=== PATIENT | male | born 1950 | race Caucasian/White ===

== ENCOUNTER 2017-06-23 15:54 | Inpatient (IN) ==
[2017-06-23 17:06] LABS: Basophils % 0.4 % (0.0-0.8); Eosinophils # 0.2 10*3/uL (0.0-0.87); Eosinophils % 1.9 % (0.00-10.9); Hematocrit 40.3 VOL% (42.0-52.0); Hemoglobin 13.5 GM/DL (14.0-18.0); Immature Granulocytes % 1.7 %; Immature Granulocytes Absolute 0.15 #; Lymphocytes # 1.2 10*3/uL (1.4-4.0); Lymphocytes % 13.3 % (21.2-54.2); Mean Corpuscular HGB Conc 33.5 GM/DL (32-36); Mean Corpuscular Hemoglobin 28 PG (27-34); Mean Corpuscular Volume 84.1 FL (87-102); Mean Platelet Volume 10.4 FL (9.6-12.0); Monocytes # 0.7 10*3/uL (0.11-0.8); Monocytes % 8.3 % (1.7-12.7); Neutrophils # 6.6 10*3/uL (1.4-7.4); Neutrophils % 74.4 % (38.7-73.9); Platelet Count 336 T/CUMM (130-400); Red Blood Count 4.79 MC/CUMM (3.8-5.5); Red Cell Distribution Width 12.9 % (9.3-17.3); White Blood Count 8.9 T/CUMM (4-12)
[2017-06-23 17:07] LABS: Apearance,Urine CLEAR (Clear); Bilirubin,Urine Negative (Negative); Blood, Urine Negative (Negative); Glucose,Urine (UA) >=500 mg/dL (Negative); Ketones,Urine Negative (Negative); Nitrite,Urine Negative (Negative); Protein,Urine Negative; RBC,Urine <1 /HPF (0-4); Urine Color Yellow (Yellow); Urine Urobilinogen < 2.0 EU/DL (0.2-1.0); WBC,Urine <1 /HPF (0-6)
[2017-06-23 17:28] LABS: Alanine Aminotransferase 24 U/L (16-61); Albumin 3.6 G/DL (3.4-5.0); Alkaline Phosphatase 170 U/L (45-117); Aspartate Amino Transferase 14 U/L (0-37); Bilirubin,Total < 0.39 MG/DL (0.2-1.0); Blood Urea Nitrogen 24 MG/DL (7-18); Calcium 10.6 MG/DL (8.5-10.1); Glucose 252 MG/DL (74-106); Osmolality,Calculated 285.8 MOS/KG (273-304); Potassium 4.1 MMOL/L (3.5-5.1); Sodium 137 MMOL/L (136-145); Total Protein 6.9 G/DL (6.4-8.3); Troponin I Only < 0.015 NG/ML (0.00-0.045)
[2017-06-23] MEDS ORDERED: GLUCAGON 1 MG VIAL IM PRN (22:41)
[2017-06-23] MEDS ORDERED: DEXTROSE 50% 25 GM/50 ML VIAL IV PRN (22:41)
[2017-06-23] MEDS ORDERED: ONDANSETRON 4 MG/2 ML VIAL IV PRN (22:41)
[2017-06-23] MEDS: MORPHINE 2 MG/1 ML SYRINGE IV PRN (23:05)
[2017-06-23] MEDS: ENOXAPARIN 40 MG/0.4 ML SYRINGE SUBCUT SCH (23:06)
[2017-06-23] MEDS: INSULIN LISPRO 100 UNIT/ML SUBCUT SCH (23:06)
[2017-06-23] MEDS: SODIUM CHLORIDE 0.9% 1,000 ML IV SCH (23:51)
[2017-06-24 02:35] LABS: Basophils % 0.3 % (0.0-0.8); Eosinophils % 0.3 % (0.00-10.9); Hematocrit 38.1 VOL% (42.0-52.0); Hemoglobin 12.5 GM/DL (14.0-18.0); Immature Granulocytes % 0.6 %; Immature Granulocytes Absolute 0.07 #; Lymphocytes # 0.9 10*3/uL (1.4-4.0); Mean Corpuscular HGB Conc 32.8 GM/DL (32-36); Mean Corpuscular Hemoglobin 28 PG (27-34); Mean Corpuscular Volume 85.6 FL (87-102); Monocytes % 7.6 % (1.7-12.7); Neutrophils # 10.6 10*3/uL (1.4-7.4); Neutrophils % 84.2 % (38.7-73.9); Platelet Count 306 T/CUMM (130-400); Red Blood Count 4.45 MC/CUMM (3.8-5.5); Red Cell Distribution Width 12.9 % (9.3-17.3); White Blood Count 12.6 T/CUMM (4-12)
[2017-06-24 03:02] LABS: Calcium 9.7 MG/DL (8.5-10.1); Osmolality,Calculated 283.8 MOS/KG (273-304); Potassium 4.1 MMOL/L (3.5-5.1)
[2017-06-24 03:06] LABS: Risk Ratio 3.9; VLDL CHOLESTEROL 17.4 MG/DL
[2017-06-24] MEDS: MORPHINE 2 MG/1 ML SYRINGE IV PRN (04:57)
[2017-06-24] MEDS: INSULIN LISPRO 100 UNIT/ML SUBCUT SCH ×4 (08:55→21:00)
[2017-06-24] MEDS: PANTOPRAZOLE 40 MG TABLET PO SCH (08:56)
[2017-06-24] MEDS: SODIUM CHLORIDE 0.9% 1,000 ML IV SCH (16:07)
[2017-06-24] MEDS: ENOXAPARIN 40 MG/0.4 ML SYRINGE SUBCUT SCH (21:03)
[2017-06-24] MEDS: ZALEPLON 5 MG CAPSULE PO PRN (23:09)
[2017-06-25] MEDS: INSULIN LISPRO 100 UNIT/ML SUBCUT SCH ×4 (07:58→21:23)
[2017-06-25] MEDS: SODIUM CHLORIDE 0.9% 1,000 ML IV SCH (08:20)
[2017-06-25] MEDS: PANTOPRAZOLE 40 MG TABLET PO SCH (08:21)
[2017-06-26] MEDS: SODIUM CHLORIDE 0.9% 1,000 ML IV SCH ×2 (00:37→16:46)
[2017-06-26] MEDS ORDERED: SIMETHICONE CHEW 125 MG TABLET PO PRN (00:50)
[2017-06-26 05:39] LABS: Basophils % 0.3 % (0.0-0.8); Eosinophils # 0.1 10*3/uL (0.0-0.87); Eosinophils % 0.8 % (0.00-10.9); Hematocrit 38.1 VOL% (42.0-52.0); Hemoglobin 12.4 GM/DL (14.0-18.0); Immature Granulocytes % 0.6 %; Immature Granulocytes Absolute 0.08 #; Lymphocytes # 0.7 10*3/uL (1.4-4.0); Lymphocytes % 5.8 % (21.2-54.2); Mean Corpuscular HGB Conc 32.5 GM/DL (32-36); Mean Corpuscular Hemoglobin 28 PG (27-34); Mean Corpuscular Volume 87.4 FL (87-102); Monocytes % 7.4 % (1.7-12.7); Neutrophils # 10.9 10*3/uL (1.4-7.4); Neutrophils % 85.1 % (38.7-73.9); Platelet Count 295 T/CUMM (130-400); Red Blood Count 4.36 MC/CUMM (3.8-5.5); Red Cell Distribution Width 13.1 % (9.3-17.3); White Blood Count 12.8 T/CUMM (4-12)
[2017-06-26 06:14] LABS: Calcium 9.6 MG/DL (8.5-10.1); Osmolality,Calculated 276.1 MOS/KG (273-304); Potassium 4.5 MMOL/L (3.5-5.1)
[2017-06-26] MEDS: PANTOPRAZOLE 40 MG TABLET PO SCH (08:37)
[2017-06-26] MEDS: INSULIN LISPRO 100 UNIT/ML SUBCUT SCH ×4 (08:37→21:25)
[2017-06-26] MEDS: ZALEPLON 5 MG CAPSULE PO PRN (21:25)
[2017-06-27] MEDS: MORPHINE 2 MG/1 ML SYRINGE IV PRN (01:45)
[2017-06-27 05:22] LABS: Basophils % 0.4 % (0.0-0.8); Eosinophils # 0.2 10*3/uL (0.0-0.87); Eosinophils % 1.7 % (0.00-10.9); Hematocrit 38.3 VOL% (42.0-52.0); Hemoglobin 12.3 GM/DL (14.0-18.0); Immature Granulocytes % 0.9 %; Lymphocytes # 0.8 10*3/uL (1.4-4.0); Lymphocytes % 6.8 % (21.2-54.2); Mean Corpuscular HGB Conc 32.1 GM/DL (32-36); Mean Corpuscular Hemoglobin 28 PG (27-34); Mean Corpuscular Volume 87.2 FL (87-102); Mean Platelet Volume 10.5 FL (9.6-12.0); Monocytes # 0.8 10*3/uL (0.11-0.8); Monocytes % 6.8 % (1.7-12.7); Neutrophils # 9.5 10*3/uL (1.4-7.4); Neutrophils % 83.4 % (38.7-73.9); Platelet Count 318 T/CUMM (130-400); Red Blood Count 4.39 MC/CUMM (3.8-5.5); Red Cell Distribution Width 13.1 % (9.3-17.3); White Blood Count 11.4 T/CUMM (4-12)
[2017-06-27 05:29] LABS: PT Patient Result 10.7 SECS; Partial Thromboplastin Time 29.4 SECS (0-40)
[2017-06-27] MEDS ORDERED: MEPERIDINE 50 MG/1 ML VIAL IM ONE (07:30)
[2017-06-27] MEDS ORDERED: BENZONATATE 100 MG CAPSULE PO ONE (07:30)
[2017-06-27] MEDS ORDERED: diphenhydrAMINE 50 MG/1 ML VIAL IM ONE (07:30)
[2017-06-27] MEDS ORDERED: LIDOCAINE 2% VISCOUS 100 ML BOTTLE SWISH/SPIT ONE (08:00)
[2017-06-27] MEDS ORDERED: LIDOCAINE 2% 20 ML VIAL RESP TX ONE (08:00)
[2017-06-27] MEDS ORDERED: LIDOCAINE 1% 20 ML VIAL MISC INJ ONE (08:00)
[2017-06-27] MEDS ORDERED: EPINEPHrine 1 MG/ML VIAL ET ONE (09:55)
[2017-06-27] MEDS: INSULIN LISPRO 100 UNIT/ML SUBCUT SCH (10:37)
[2017-06-27] MEDS ORDERED: EPINEPHrine 1 MG/ML VIAL ONE (10:37)
[2017-06-27] MEDS: PANTOPRAZOLE 40 MG TABLET PO SCH (10:38)
[2017-06-27] MEDS: SODIUM CHLORIDE 0.9% 1,000 ML IV SCH (10:41)
[2017-06-27 16:29] VITALS: BP 158/76
== END 2017-06-27 16:17 | disposition home or self-care (01) | DRG 988 ==
LOC: N.ED 15:54 → N.EDINP 19:58 → SUATTDRO 19:58 → N.3E 21:13
PROVIDERS: ADMIT Family Medicine; ATTEND Internal Medicine
PROC: BRONCHB (2017-06-27 09:05)

== ENCOUNTER 2018-01-30 18:04 | Inpatient (IN) ==
[2018-01-30] MEDS ORDERED: methylPREDNISolone SOD SUC 125 MG/2 ML VIAL IV STA (20:21)
[2018-01-30] MEDS ORDERED: LEVOFLOXACIN INJ 500 MG in PREMIX 1 EACH IV STA (20:21)
[2018-01-30] MEDS ORDERED: DILTIAZEM 50 MG/10 ML VIAL IV STA (20:21)
[2018-01-30] MEDS ORDERED: ALBUTEROL/IPRATROPIUM 3 ML NEB RESP TX STA (20:21)
[2018-01-30] MEDS ORDERED: FUROSEMIDE 100 MG/10 ML VIAL IV STA (20:21)
[2018-01-30] MEDS ORDERED: ONDANSETRON 4 MG/2 ML VIAL IV STA (20:21)
[2018-01-30] MEDS ORDERED: DILTIAZEM 25 MG/5 ML VIAL IV STA (20:40)
[2018-01-30] MEDS: DILTIAZEM INJ 100 MG in SODIUM CHLORIDE 0.9% 100 ML IV SCH (21:45)
[2018-01-30 22:08] LABS: Basophils % 0.4 % (0.0-0.8); Eosinophils % 0.8 % (0.00-10.9); Hematocrit 38.5 VOL% (42.0-52.0); Hemoglobin 12.7 GM/DL (14.0-18.0); Immature Granulocytes % 0.8 %; Immature Granulocytes Absolute 0.04 #; Lymphocytes # 0.5 10*3/uL (1.4-4.0); Lymphocytes % 10.7 % (21.2-54.2); Mean Corpuscular Hemoglobin 30 PG (27-34); Mean Corpuscular Volume 91.9 FL (87-102); Mean Platelet Volume 9.6 FL (9.6-12.0); Monocytes # 0.5 10*3/uL (0.11-0.8); Monocytes % 9.5 % (1.7-12.7); Neutrophils # 3.7 10*3/uL (1.4-7.4); Neutrophils % 77.8 % (38.7-73.9); Platelet Count 265 T/CUMM (130-400); Red Blood Count 4.19 MC/CUMM (3.8-5.5); Red Cell Distribution Width 13.9 % (9.3-17.3); White Blood Count 4.8 T/CUMM (4-12)
[2018-01-30 22:21] LABS: INR 1.1; PT Patient Result 11.2 SECS
[2018-01-30 22:29] LABS: Albumin 3.4 G/DL (3.4-5.0); Bilirubin,Total 0.7 MG/DL (0.2-1.0); Calcium 10.3 MG/DL (8.5-10.1); Osmolality,Calculated 278.7 MOS/KG (273-304); Potassium 4.1 MMOL/L (3.5-5.1); Total Protein 7.6 G/DL (6.4-8.3)
[2018-01-30 22:30] LABS: Lactic Acid 1.4 MMOL/L (0.4-2.0)
[2018-01-30 22:33] LABS: Apearance,Urine CLEAR (Clear); Bilirubin,Urine Negative (Negative); Blood, Urine Negative (Negative); Glucose,Urine (UA) Negative (Negative); Ketones,Urine Negative (Negative); Nitrite,Urine Negative (Negative); Protein,Urine Negative; Urine Color Yellow (Yellow); Urine Specific Gravity 1.009 (1.001-1.035); Urine Urobilinogen < 2.0 EU/DL (0.2-1.0); WBC,Urine <1 /HPF (0-6)
[2018-01-30] MEDS ORDERED: METOPROLOL TARTRATE 5 MG/5 ML VIAL IV STA (23:28)
[2018-01-30] MEDS ORDERED: ENOXAPARIN 40 MG/0.4 ML SYRINGE SUBCUT STA (23:36)
[2018-01-30] MEDS ORDERED: ASPIRIN 325 MG TABLET PO STA (23:36)
[2018-01-31] MEDS ORDERED: MAGNESIUM SULF RIDER 4 GM in PREMIX 1 EACH IV PRN (01:00)
[2018-01-31] MEDS ORDERED: ZALEPLON 5 MG CAPSULE PO PRN (01:00)
[2018-01-31] MEDS ORDERED: ONDANSETRON 4 MG/2 ML VIAL IV PRN (01:00)
[2018-01-31] MEDS ORDERED: ACETAMINOPHEN 325 MG TABLET PO PRN (01:00)
[2018-01-31] MEDS ORDERED: MAGNESIUM SULF RIDER 2 GM in PREMIX 1 EACH IV PRN (01:00)
[2018-01-31] MEDS ORDERED: diphenhydrAMINE CAP 25 MG CAPSULE PO PRN (01:00)
[2018-01-31] MEDS ORDERED: LACTULOSE 20 GM/30 ML UDCUP PO PRN (01:00)
[2018-01-31] MEDS ORDERED: DILTIAZEM INJ 100 MG in SODIUM CHLORIDE 0.9% 100 ML IV SCH (01:00)
[2018-01-31] MEDS ORDERED: MORPHINE 4 MG/1 ML VIAL IV PRN (01:00)
[2018-01-31] MEDS: DILTIAZEM INJ 100 MG in SODIUM CHLORIDE 0.9% 100 ML IV SCH ×4 (03:57→21:26)
[2018-01-31 04:42] LABS: Basophils % 0.2 % (0.0-0.8); Hematocrit 39.6 VOL% (42.0-52.0); Hemoglobin 13.2 GM/DL (14.0-18.0); Immature Granulocytes % 0.7 %; Immature Granulocytes Absolute 0.03 #; Lymphocytes # 0.4 10*3/uL (1.4-4.0); Lymphocytes % 9.2 % (21.2-54.2); Mean Corpuscular HGB Conc 33.3 GM/DL (32-36); Mean Corpuscular Hemoglobin 30 PG (27-34); Mean Corpuscular Volume 91.2 FL (87-102); Mean Platelet Volume 10.5 FL (9.6-12.0); Monocytes # 0.1 10*3/uL (0.11-0.8); Monocytes % 3.2 % (1.7-12.7); Neutrophils # 3.8 10*3/uL (1.4-7.4); Neutrophils % 86.7 % (38.7-73.9); Platelet Count 275 T/CUMM (130-400); Red Blood Count 4.34 MC/CUMM (3.8-5.5); Red Cell Distribution Width 13.9 % (9.3-17.3); White Blood Count 4.4 T/CUMM (4-12)
[2018-01-31 05:24] LABS: Albumin 3.1 G/DL (3.4-5.0); Bilirubin,Total 0.5 MG/DL (0.2-1.0); Osmolality,Calculated 281.2 MOS/KG (273-304); Potassium 4.1 MMOL/L (3.5-5.1); Risk Ratio 4.03; Thyroid Stimulating Hormone 0.556 uIU/ml (0.358-3.74); Total Protein 7.4 G/DL (6.4-8.3); VLDL CHOLESTEROL 21.4 MG/DL
[2018-01-31] MEDS ORDERED: ENOXAPARIN 40 MG/0.4 ML SYRINGE SUBCUT SCH (09:00)
[2018-01-31] MEDS: APIXABAN 2.5 MG TABLET PO SCH ×2 (09:34→21:22)
[2018-01-31] MEDS: PANTOPRAZOLE 40 MG TABLET PO SCH (09:34)
[2018-01-31] MEDS: ALBUTEROL/IPRATROPIUM 3 ML NEB RESP TX PRN ×2 (13:30→20:10)
[2018-01-31] MEDS: LEVOFLOXACIN INJ 500 MG in PREMIX 1 EACH IV SCH (17:00)
[2018-02-01] MEDS: DILTIAZEM INJ 100 MG in SODIUM CHLORIDE 0.9% 100 ML IV SCH ×4 (03:59→20:51)
[2018-02-01] MEDS: APIXABAN 2.5 MG TABLET PO SCH ×2 (09:43→20:49)
[2018-02-01] MEDS: PANTOPRAZOLE 40 MG TABLET PO SCH (09:43)
[2018-02-01] MEDS: POLYETHYLENE GLYCOL POWDER 17 GM PACK PO SCH ×2 (13:26→20:49)
[2018-02-01] MEDS ORDERED: DILTIAZEM CD 180 MG CAPSULE PO SCH (14:30)
[2018-02-01] MEDS ORDERED: METOPROLOL TARTRATE 25 MG TABLET PO SCH ×2 (14:30)
[2018-02-01] MEDS ORDERED: GLUCAGON 1 MG VIAL IM PRN (14:41)
[2018-02-01] MEDS ORDERED: DEXTROSE 50% 25 GM/50 ML VIAL IV PRN (14:41)
[2018-02-01] MEDS ORDERED: SOTALOL 80 MG TABLET PO ONE (15:52)
[2018-02-01] MEDS: ASCORBIC ACID 500 MG TABLET PO SCH ×2 (15:59→20:49)
[2018-02-01] MEDS: INSULIN LISPRO 100 UNIT/ML SUBCUT SCH ×2 (16:32→20:50)
[2018-02-01] MEDS: LEVOFLOXACIN INJ 500 MG in PREMIX 1 EACH IV SCH (18:29)
[2018-02-01] MEDS: SOTALOL 80 MG TABLET PO SCH (20:50)
[2018-02-02 04:18] LABS: Basophils % 0.4 % (0.0-0.8); Eosinophils # 0.3 10*3/uL (0.0-0.87); Eosinophils % 3.3 % (0.00-10.9); Hematocrit 37.2 VOL% (42.0-52.0); Hemoglobin 11.7 GM/DL (14.0-18.0); Immature Granulocytes % 0.4 %; Immature Granulocytes Absolute 0.03 #; Lymphocytes % 11.1 % (21.2-54.2); Mean Corpuscular HGB Conc 31.5 GM/DL (32-36); Mean Corpuscular Hemoglobin 29 PG (27-34); Mean Corpuscular Volume 93.2 FL (87-102); Mean Platelet Volume 10.2 FL (9.6-12.0); Monocytes # 0.8 10*3/uL (0.11-0.8); Monocytes % 9.8 % (1.7-12.7); Neutrophils # 6.4 10*3/uL (1.4-7.4); Platelet Count 352 T/CUMM (130-400); Red Blood Count 3.99 MC/CUMM (3.8-5.5); White Blood Count 8.6 T/CUMM (4-12)
[2018-02-02 04:36] LABS: Calcium 9.9 MG/DL (8.5-10.1); Potassium 4.3 MMOL/L (3.5-5.1)
[2018-02-02] MEDS: PANTOPRAZOLE 40 MG TABLET PO SCH (09:13)
[2018-02-02] MEDS: POLYETHYLENE GLYCOL POWDER 17 GM PACK PO SCH ×2 (09:13→21:16)
[2018-02-02] MEDS: INSULIN LISPRO 100 UNIT/ML SUBCUT SCH ×4 (09:13→22:29)
[2018-02-02] MEDS: APIXABAN 2.5 MG TABLET PO SCH ×2 (09:14→21:15)
[2018-02-02] MEDS: SOTALOL 80 MG TABLET PO SCH ×2 (09:21→21:15)
[2018-02-02] MEDS: ASCORBIC ACID 500 MG TABLET PO SCH ×2 (09:25→21:16)
[2018-02-02] MEDS: SODIUM CHLORIDE 0.9% 1,000 ML IV SCH (10:56)
[2018-02-02] MEDS: DILTIAZEM INJ 100 MG in SODIUM CHLORIDE 0.9% 100 ML IV SCH ×2 (14:48→21:21)
[2018-02-02] MEDS: metFORMIN 500 MG TABLET PO SCH (16:38)
[2018-02-02] MEDS: LEVOFLOXACIN INJ 500 MG in PREMIX 1 EACH IV SCH (16:39)
[2018-02-03] MEDS: DILTIAZEM INJ 100 MG in SODIUM CHLORIDE 0.9% 100 ML IV SCH (01:58)
[2018-02-03] MEDS: SODIUM CHLORIDE 0.9% 1,000 ML IV SCH (02:05)
[2018-02-03 03:19] LABS: Basophils % 0.2 % (0.0-0.8); Eosinophils # 0.3 10*3/uL (0.0-0.87); Eosinophils % 5.4 % (0.00-10.9); Hematocrit 33.9 VOL% (42.0-52.0); Immature Granulocytes % 0.8 %; Immature Granulocytes Absolute 0.05 #; Lymphocytes % 15.3 % (21.2-54.2); Mean Corpuscular HGB Conc 32.4 GM/DL (32-36); Mean Corpuscular Hemoglobin 30 PG (27-34); Mean Corpuscular Volume 91.6 FL (87-102); Monocytes # 0.4 10*3/uL (0.11-0.8); Monocytes % 6.1 % (1.7-12.7); Neutrophils # 4.6 10*3/uL (1.4-7.4); Neutrophils % 72.2 % (38.7-73.9); Platelet Count 291 T/CUMM (130-400); Red Cell Distribution Width 13.8 % (9.3-17.3); White Blood Count 6.4 T/CUMM (4-12)
[2018-02-03 04:04] LABS: Calcium 9.8 MG/DL (8.5-10.1); Osmolality,Calculated 279.7 MOS/KG (273-304); Potassium 4.2 MMOL/L (3.5-5.1)
[2018-02-03 07:55] VITALS: BP 125/89
[2018-02-03] MEDS ORDERED: SOTALOL 80 MG TABLET PO SCH (09:00)
[2018-02-03] MEDS: ASCORBIC ACID 500 MG TABLET PO SCH (11:00)
[2018-02-03] MEDS: metFORMIN 500 MG TABLET PO SCH (11:00)
[2018-02-03] MEDS: POLYETHYLENE GLYCOL POWDER 17 GM PACK PO SCH (11:00)
[2018-02-03] MEDS: APIXABAN 2.5 MG TABLET PO SCH (11:02)
[2018-02-03] MEDS: PANTOPRAZOLE 40 MG TABLET PO SCH (11:02)
== END 2018-02-03 11:25 | disposition home or self-care (01) | DRG 308 ==
LOC: N.ED 18:04 → N.EDINP 01-31 01:00 → N.TELES 01-31 02:04
PROVIDERS: ADMIT Internal Medicine; ATTEND Internal Medicine

== ENCOUNTER 2018-11-15 21:37 | Inpatient (IN) ==
[2018-11-15] MEDS ORDERED: ONDANSETRON 4 MG/2 ML VIAL IV STA (22:01)
[2018-11-15] MEDS ORDERED: SODIUM CHLORIDE 0.9% 500 ML IV STA (22:01)
[2018-11-15] MEDS ORDERED: PANTOPRAZOLE 40 MG VIAL IV STA (22:01)
[2018-11-15] MEDS ORDERED: HYDROmorphone 2 MG/1 ML VIAL IV STA (22:01)
[2018-11-15] MEDS ORDERED: KETOROLAC 30 MG/1 ML VIAL IV STA (22:01)
[2018-11-15 22:55] LABS: Basophils % 0.3 % (0.0-0.8); Eosinophils # 0.2 10*3/uL (0.0-0.87); Eosinophils % 2.4 % (0.00-10.9); Hematocrit 42.4 VOL% (42.0-52.0); Hemoglobin 13.5 GM/DL (14.0-18.0); Immature Granulocytes % 0.6 %; Immature Granulocytes Absolute 0.06 #; Lymphocytes % 10.1 % (21.2-54.2); Mean Corpuscular HGB Conc 31.8 GM/DL (32-36); Mean Corpuscular Volume 89.3 FL (87-102); Mean Platelet Volume 10.1 FL (9.6-12.0); Monocytes % 8.6 % (1.7-12.7); Platelet Count 235 T/CUMM (130-400); Red Blood Count 4.75 MC/CUMM (3.8-5.5); Red Cell Distribution Width 13.8 % (9.3-17.3); White Blood Count 9.8 T/CUMM (4-12)
[2018-11-15 23:25] LABS: Alanine Aminotransferase 24 U/L (16-61); Albumin 3.4 G/DL (3.4-5.0); Alkaline Phosphatase 98 U/L (45-117); Amylase 44 U/L (25-115); Aspartate Amino Transferase 16 U/L (0-37); Bilirubin,Total < 0.39 MG/DL (0.2-1.0); Blood Urea Nitrogen 20 MG/DL (7-18); Calcium 10.7 MG/DL (8.5-10.1); Glucose 168 MG/DL (74-106); Osmolality,Calculated 283.5 MOS/KG (273-304); Total Protein 7.3 G/DL (6.4-8.3)
[2018-11-16 02:36] LABS: Apearance,Urine CLEAR (Clear); Bilirubin,Urine Negative (Negative); Blood, Urine Negative (Negative); Calcium Oxalate Crystals,Urine Few /HPF (Few); Glucose,Urine (UA) 50 mg/dL (Negative); Hyaline Casts,Urine 3 /LPF (0-3); Ketones,Urine Negative (Negative); Mucus,Urine Occasional /LPF (Occasional); Nitrite,Urine Negative (Negative); Protein,Urine Negative; RBC,Urine 4 /HPF (0-4); Squamous Epithelial Cell,Urine Occasional /HPF (0-10); Urine Color Yellow (Yellow); Urine Specific Gravity 1.017 (1.001-1.035); Urine Urobilinogen < 2.0 EU/DL (0.2-1.0); WBC,Urine 2 /HPF (0-6)
[2018-11-16] MEDS ORDERED: PROMETHAZINE 25 MG/1 ML VIAL IM PRN (04:26)
[2018-11-16] MEDS ORDERED: ONDANSETRON 4 MG/2 ML VIAL IV PRN (04:26)
[2018-11-16] MEDS ORDERED: MORPHINE 4 MG/1 ML VIAL IV PRN (04:26)
[2018-11-16] MEDS ORDERED: NITROGLYCERIN SL 0.4 MG TABLET SL PRN (05:02)
[2018-11-16] MEDS ORDERED: DEXTROSE 50% 25 GM/50 ML VIAL IV PRN (05:04)
[2018-11-16] MEDS ORDERED: GLUCAGON 1 MG VIAL IM PRN (05:04)
[2018-11-16] MEDS: INSULIN REGULAR 100 UNIT/ML SUBCUT SCH ×4 (06:21→23:33)
[2018-11-16] MEDS ORDERED: ENOXAPARIN 40 MG/0.4 ML SYRINGE SUBCUT SCH (09:30)
[2018-11-16] MEDS ORDERED: ALBUTEROL 2.5 MG/3 ML NEB RESP TX PRN (13:00)
[2018-11-16] MEDS ORDERED: POLYVINYL ALCOHOL 1.4% OPH SOLN 15 ML BOTTLE BOTH EYES PRN (15:16)
[2018-11-16] MEDS ORDERED: POLYETHYLENE GLYCOL 3350/ELECTROLYTES 4,000 ML BOTTLE PO ONE (15:47)
[2018-11-16] MEDS: PRASUGREL 10 MG TABLET PO SCH (16:18)
[2018-11-16] MEDS ORDERED: DILTIAZEM 25 MG/5 ML VIAL IV ONE (17:24)
[2018-11-16] MEDS ORDERED: dilTIAZem Drip 125 MG/125 ML PREMIX IV SCH (17:30)
[2018-11-16] MEDS ORDERED: SODIUM CHLORIDE 0.9% 100 ML IV ONE (17:54)
[2018-11-16] MEDS ORDERED: SOTALOL 80 MG TABLET PO SCH (21:00)
[2018-11-16] MEDS: APIXABAN 2.5 MG TABLET PO SCH (21:05)
[2018-11-17] MEDS: INSULIN REGULAR 100 UNIT/ML SUBCUT SCH ×3 (05:00→18:42)
[2018-11-17 05:29] LABS: Basophils % 0.3 % (0.0-0.8); Eosinophils # 0.1 10*3/uL (0.0-0.87); Eosinophils % 1.5 % (0.00-10.9); Hematocrit 41.4 VOL% (42.0-52.0); Hemoglobin 13.3 GM/DL (14.0-18.0); Immature Granulocytes % 0.4 %; Immature Granulocytes Absolute 0.04 #; Lymphocytes % 10.4 % (21.2-54.2); Mean Corpuscular HGB Conc 32.1 GM/DL (32-36); Mean Corpuscular Volume 88.8 FL (87-102); Monocytes % 10.8 % (1.7-12.7); Neutrophils % 76.6 % (38.7-73.9); Platelet Count 244 T/CUMM (130-400); Red Blood Count 4.66 MC/CUMM (3.8-5.5); Red Cell Distribution Width 13.9 % (9.3-17.3); White Blood Count 9.4 T/CUMM (4-12)
[2018-11-17 05:58] LABS: Calcium 10.3 MG/DL (8.5-10.1); Osmolality,Calculated 283.3 MOS/KG (273-304)
[2018-11-17] MEDS: LISINOPRIL 2.5 MG TABLET PO SCH (09:49)
[2018-11-17] MEDS: ASPIRIN EC 81 MG TABLET PO SCH (09:49)
[2018-11-17] MEDS: SOTALOL 80 MG TABLET PO SCH ×2 (09:49→20:57)
[2018-11-17] MEDS: PRASUGREL 10 MG TABLET PO SCH (09:49)
[2018-11-17] MEDS: APIXABAN 2.5 MG TABLET PO SCH ×2 (09:49→20:57)
[2018-11-17] MEDS: POTASSIUM CHLORIDE 8 MEQ CAPSULE PO SCH (09:49)
[2018-11-17] MEDS: FUROSEMIDE 40 MG TABLET PO SCH (09:50)
[2018-11-17] MEDS: POLYETHYLENE GLYCOL POWDER 17 GM PACK PO SCH (13:08)
[2018-11-18] MEDS: INSULIN REGULAR 100 UNIT/ML SUBCUT SCH ×2 (01:44→06:25)
[2018-11-18] MEDS: POTASSIUM CHLORIDE 8 MEQ CAPSULE PO SCH (08:49)
[2018-11-18] MEDS: LISINOPRIL 2.5 MG TABLET PO SCH (08:50)
[2018-11-18] MEDS: PRASUGREL 10 MG TABLET PO SCH (08:50)
[2018-11-18] MEDS: FUROSEMIDE 40 MG TABLET PO SCH (08:50)
[2018-11-18] MEDS: SOTALOL 80 MG TABLET PO SCH (08:50)
[2018-11-18] MEDS: ASPIRIN EC 81 MG TABLET PO SCH (08:51)
[2018-11-18] MEDS: APIXABAN 2.5 MG TABLET PO SCH (08:51)
[2018-11-18] MEDS: POLYETHYLENE GLYCOL POWDER 17 GM PACK PO SCH (08:52)
[2018-11-18 12:28] VITALS: BP 122/60
== END 2018-11-18 13:06 | disposition home or self-care (01) | DRG 395 ==
LOC: N.ED 21:37 → N.EDINP 21:37 → INTOOBSV 11-16 03:13 → OBSVTOIN 11-16 03:13 → N.TELES 11-16 03:39 → SUATTDRO 11-16 13:11
PROVIDERS: ADMIT Internal Medicine; ATTEND Internal Medicine

== ENCOUNTER 2019-10-15 04:05 | Inpatient (IN) ==
[2019-10-15 04:42] LABS: Basophils % 0.5 % (0.0-0.8); Eosinophils # 0.4 10*3/uL (0.0-0.87); Eosinophils % 4.1 % (0.00-10.9); Hematocrit 36.3 VOL% (42.0-52.0); Hemoglobin 11.3 GM/DL (14.0-18.0); Immature Granulocytes % 0.6 %; Immature Granulocytes Absolute 0.05 #; Lymphocytes % 11.5 % (21.2-54.2); Mean Corpuscular HGB Conc 31.1 GM/DL (32-36); Mean Corpuscular Volume 91.4 FL (87-102); Mean Platelet Volume 10.3 FL (9.6-12.0); Monocytes % 10.6 % (1.7-12.7); Neutrophils % 72.7 % (38.7-73.9); Platelet Count 258 T/CUMM (130-400); Red Blood Count 3.97 MC/CUMM (3.8-5.5); Red Cell Distribution Width 14.1 % (9.3-17.3); White Blood Count 8.8 T/CUMM (4-12)
[2019-10-15 05:00] LABS: INR 1.1; PT Patient Result 11.4 SECS (9.8-11.9)
[2019-10-15 05:18] LABS: Albumin 3.1 G/DL (3.4-5.0); Bilirubin,Total 0.4 MG/DL (0.2-1.0); Calcium 10.3 MG/DL (8.5-10.1); Osmolality,Calculated 284.4 MOS/KG (273-304); Total Protein 6.5 G/DL (6.4-8.3)
[2019-10-15] MEDS ORDERED: ONDANSETRON 4 MG/2 ML VIAL IV PRN (07:20)
[2019-10-15] MEDS ORDERED: DEXTROSE 10% 250 ML BAG IV PRN (07:20)
[2019-10-15] MEDS ORDERED: DOCUSATE SODIUM 100 MG CAPSULE PO PRN (07:20)
[2019-10-15] MEDS ORDERED: ACETAMINOPHEN 325 MG TABLET PO PRN (07:20)
[2019-10-15] MEDS ORDERED: GLUCAGON 1 MG VIAL IM PRN (07:20)
[2019-10-15] MEDS ORDERED: ENOXAPARIN 40 MG/0.4 ML SYRINGE SUBCUT SCH (08:00)
[2019-10-15 08:38] LABS: Risk Ratio 2.91; Thyroid Stimulating Hormone 1.54 uIU/ml (0.358-3.74)
[2019-10-15] MEDS: INSULIN REGULAR 100 UNIT/ML SUBCUT SCH ×4 (10:14→20:13)
[2019-10-15] MEDS: FUROSEMIDE 40 MG/4 ML VIAL IV SCH ×2 (10:59→16:48)
[2019-10-15] MEDS: PANTOPRAZOLE 40 MG TABLET PO SCH (10:59)
[2019-10-15] MEDS ORDERED: POLYETHYLENE GLYCOL POWDER 17 GM PACK PO PRN (11:15)
[2019-10-15] MEDS ORDERED: ALBUTEROL 2.5 MG/3 ML NEB RESP TX PRN (11:15)
[2019-10-15 11:37] LABS: Ferritin 164.9 ng/ml (26-388)
[2019-10-15] MEDS: SOTALOL 80 MG TABLET PO SCH (20:11)
[2019-10-15] MEDS: APIXABAN 2.5 MG TABLET PO SCH (20:14)
[2019-10-15] MEDS ORDERED: LOPERAMIDE 2 MG CAPSULE PO PRN ×2 (23:07)
[2019-10-15] MEDS ORDERED: MAGNESIUM HYDROXIDE SUSP 30 ML UDCUP PO PRN (23:07)
[2019-10-15] MEDS ORDERED: diphenhydrAMINE CAP 25 MG CAPSULE PO PRN (23:07)
[2019-10-15] MEDS ORDERED: traMADol 50 MG TABLET PO PRN (23:07)
[2019-10-15] MEDS ORDERED: MYLANTA/LIDO VISC 2:1 300 ML BOTTLE SWISH/SPIT PRN (23:07)
[2019-10-15] MEDS ORDERED: LACTULOSE 20 GM/30 ML UDCUP PO PRN (23:07)
[2019-10-15] MEDS ORDERED: PROMETHAZINE INJ 25 MG in SODIUM CHLORIDE 0.9% 50 ML IV PRN (23:07)
[2019-10-15] MEDS ORDERED: MYLANTA/LIDO VISC 2:1 300 ML BOTTLE SWISH/SWAL PRN (23:07)
[2019-10-15] MEDS ORDERED: ALUMINUM/MAGNES/SIMETH MAX STR 30 ML UDCUP PO PRN (23:07)
[2019-10-15] MEDS ORDERED: ALPRAZolam 0.25 MG TABLET PO PRN (23:07)
[2019-10-15] MEDS: guaiFENesin 200 MG/10 ML UDCUP PO PRN (23:26)
[2019-10-15] MEDS: TEMAZEPAM 7.5 MG CAPSULE PO PRN (23:26)
[2019-10-15 23:49] LABS: Albumin 3.1 G/DL (3.4-5.0); Bilirubin,Total 0.5 MG/DL (0.2-1.0); Calcium 9.8 MG/DL (8.5-10.1); Osmolality,Calculated 271.1 MOS/KG (273-304); Total Protein 6.9 G/DL (6.4-8.3); Uric Acid 6.3 MG/DL (3.5-7.2)
[2019-10-15 23:53] LABS: Basophils % 0.5 % (0.0-0.8); Eosinophils # 0.3 10*3/uL (0.0-0.87); Eosinophils % 4.4 % (0.00-10.9); Hematocrit 36.2 VOL% (42.0-52.0); Hemoglobin 11.2 GM/DL (14.0-18.0); Immature Granulocytes % 0.4 %; Immature Granulocytes Absolute 0.03 #; Lymphocytes # 1.1 10*3/uL (1.4-4.0); Lymphocytes % 14.7 % (21.2-54.2); Mean Corpuscular HGB Conc 30.9 GM/DL (32-36); Mean Corpuscular Volume 90.7 FL (87-102); Mean Platelet Volume 10.4 FL (9.6-12.0); Monocytes % 12.3 % (1.7-12.7); Neutrophils % 67.7 % (38.7-73.9); Platelet Count 259 T/CUMM (130-400); Red Blood Count 3.99 MC/CUMM (3.8-5.5); Red Cell Distribution Width 13.8 % (9.3-17.3); White Blood Count 7.3 T/CUMM (4-12)
[2019-10-16 05:52] LABS: Basophils % 0.4 % (0.0-0.8); Eosinophils # 0.3 10*3/uL (0.0-0.87); Eosinophils % 3.9 % (0.00-10.9); Hematocrit 36.5 VOL% (42.0-52.0); Hemoglobin 11.4 GM/DL (14.0-18.0); Immature Granulocytes % 0.6 %; Immature Granulocytes Absolute 0.04 #; Lymphocytes # 0.8 10*3/uL (1.4-4.0); Mean Corpuscular HGB Conc 31.2 GM/DL (32-36); Mean Corpuscular Volume 90.3 FL (87-102); Mean Platelet Volume 10.7 FL (9.6-12.0); Monocytes % 13.2 % (1.7-12.7); Neutrophils % 70.9 % (38.7-73.9); Platelet Count 237 T/CUMM (130-400); Red Blood Count 4.04 MC/CUMM (3.8-5.5); Red Cell Distribution Width 13.9 % (9.3-17.3)
[2019-10-16 06:11] LABS: Albumin 3.1 G/DL (3.4-5.0); Bilirubin,Total 0.8 MG/DL (0.2-1.0); Calcium 9.9 MG/DL (8.5-10.1); Osmolality,Calculated 272.1 MOS/KG (273-304); Total Protein 6.9 G/DL (6.4-8.3)
[2019-10-16 07:25] LABS: Apearance,Urine CLEAR (Clear); Bacteria,Urine Occasional /HPF (Few); Bilirubin,Urine Negative (Negative); Blood, Urine Negative (Negative); Glucose,Urine (UA) Negative (Negative); Ketones,Urine Negative (Negative); Mucus,Urine Occasional /LPF (Occasional); Nitrite,Urine Negative (Negative); Protein,Urine Negative; RBC,Urine <1 /HPF (0-4); Urine Color Straw (Yellow); Urine Specific Gravity 1.006 (1.001-1.035); Urine Urobilinogen < 2.0 EU/DL (0.2-1.0); WBC,Urine <1 /HPF (0-6)
[2019-10-16] MEDS: INSULIN REGULAR 100 UNIT/ML SUBCUT SCH ×4 (07:56→21:14)
[2019-10-16] MEDS: FUROSEMIDE 40 MG/4 ML VIAL IV SCH ×2 (08:54→17:07)
[2019-10-16] MEDS: INSULIN GLARGINE 100 UNIT/ML SUBCUT SCH (08:54)
[2019-10-16] MEDS: LUBIPROSTONE 8 MCG CAPSULE PO SCH (08:55)
[2019-10-16] MEDS: SOTALOL 80 MG TABLET PO SCH ×2 (08:55→20:46)
[2019-10-16] MEDS: ROSUVASTATIN 20 MG TABLET PO SCH (08:55)
[2019-10-16] MEDS: lisinopriL 2.5 MG TABLET PO SCH (08:55)
[2019-10-16] MEDS: POTASSIUM CHLORIDE 8 MEQ CAPSULE PO SCH (08:55)
[2019-10-16] MEDS: ASPIRIN EC 81 MG TABLET PO SCH (08:56)
[2019-10-16] MEDS: PANTOPRAZOLE 40 MG TABLET PO SCH (08:56)
[2019-10-16] MEDS: PRASUGREL 10 MG TABLET PO SCH (08:56)
[2019-10-16] MEDS: APIXABAN 2.5 MG TABLET PO SCH ×2 (08:56→20:46)
[2019-10-16] MEDS ORDERED: FUROSEMIDE 20 MG/2 ML VIAL ONE (17:00)
[2019-10-16] MEDS: guaiFENesin 200 MG/10 ML UDCUP PO PRN (21:14)
[2019-10-16] MEDS: TEMAZEPAM 7.5 MG CAPSULE PO PRN (21:14)
[2019-10-17 05:36] LABS: Basophils % 0.6 % (0.0-0.8); Eosinophils # 0.3 10*3/uL (0.0-0.87); Eosinophils % 4.1 % (0.00-10.9); Hematocrit 36.1 VOL% (42.0-52.0); Hemoglobin 11.2 GM/DL (14.0-18.0); Immature Granulocytes % 0.3 %; Immature Granulocytes Absolute 0.02 #; Lymphocytes % 14.3 % (21.2-54.2); Mean Platelet Volume 10.5 FL (9.6-12.0); Neutrophils % 68.7 % (38.7-73.9); Platelet Count 244 T/CUMM (130-400); Red Blood Count 4.01 MC/CUMM (3.8-5.5); Red Cell Distribution Width 13.8 % (9.3-17.3); White Blood Count 7.1 T/CUMM (4-12)
[2019-10-17 05:58] LABS: Calcium 9.8 MG/DL (8.5-10.1); Osmolality,Calculated 272.1 MOS/KG (273-304); Total Protein 6.7 G/DL (6.4-8.3)
[2019-10-17] MEDS: INSULIN REGULAR 100 UNIT/ML SUBCUT SCH ×4 (07:14→20:23)
[2019-10-17] MEDS ORDERED: POTASSIUM CHLORIDE 20 MEQ TABLET PO PRN (07:57)
[2019-10-17] MEDS: FUROSEMIDE 40 MG/4 ML VIAL IV SCH ×2 (08:10→16:47)
[2019-10-17] MEDS: PRASUGREL 10 MG TABLET PO SCH (08:11)
[2019-10-17] MEDS: PANTOPRAZOLE 40 MG TABLET PO SCH (08:11)
[2019-10-17] MEDS: ROSUVASTATIN 20 MG TABLET PO SCH (08:11)
[2019-10-17] MEDS: SOTALOL 80 MG TABLET PO SCH ×2 (08:11→20:34)
[2019-10-17] MEDS: ASPIRIN EC 81 MG TABLET PO SCH (08:11)
[2019-10-17] MEDS: LUBIPROSTONE 8 MCG CAPSULE PO SCH (08:11)
[2019-10-17] MEDS: lisinopriL 2.5 MG TABLET PO SCH (08:11)
[2019-10-17] MEDS: POTASSIUM CHLORIDE 8 MEQ CAPSULE PO SCH (08:12)
[2019-10-17] MEDS: INSULIN GLARGINE 100 UNIT/ML SUBCUT SCH (08:12)
[2019-10-17] MEDS: APIXABAN 2.5 MG TABLET PO SCH ×2 (08:12→20:34)
[2019-10-17] MEDS: TEMAZEPAM 7.5 MG CAPSULE PO PRN (20:35)
[2019-10-17] MEDS: guaiFENesin 200 MG/10 ML UDCUP PO PRN (20:35)
[2019-10-18 06:37] LABS: Basophils % 0.4 % (0.0-0.8); Eosinophils # 0.3 10*3/uL (0.0-0.87); Hematocrit 36.1 VOL% (42.0-52.0); Hemoglobin 11.6 GM/DL (14.0-18.0); Immature Granulocytes % 0.4 %; Immature Granulocytes Absolute 0.03 #; Lymphocytes # 1.1 10*3/uL (1.4-4.0); Lymphocytes % 14.8 % (21.2-54.2); Mean Corpuscular HGB Conc 32.1 GM/DL (32-36); Mean Corpuscular Volume 88.7 FL (87-102); Monocytes % 13.8 % (1.7-12.7); Neutrophils % 66.6 % (38.7-73.9); Platelet Count 254 T/CUMM (130-400); Red Blood Count 4.07 MC/CUMM (3.8-5.5); White Blood Count 7.5 T/CUMM (4-12)
[2019-10-18 06:56] LABS: Albumin 3.1 G/DL (3.4-5.0); Bilirubin,Total 0.5 MG/DL (0.2-1.0); Calcium 9.7 MG/DL (8.5-10.1); Total Protein 6.5 G/DL (6.4-8.3)
[2019-10-18] MEDS: INSULIN REGULAR 100 UNIT/ML SUBCUT SCH ×2 (08:25→12:07)
[2019-10-18] MEDS: SOTALOL 80 MG TABLET PO SCH (08:26)
[2019-10-18] MEDS: ROSUVASTATIN 20 MG TABLET PO SCH (08:26)
[2019-10-18] MEDS: PRASUGREL 10 MG TABLET PO SCH (08:27)
[2019-10-18] MEDS: APIXABAN 2.5 MG TABLET PO SCH (08:27)
[2019-10-18] MEDS: LUBIPROSTONE 8 MCG CAPSULE PO SCH (08:27)
[2019-10-18] MEDS: lisinopriL 2.5 MG TABLET PO SCH (08:28)
[2019-10-18] MEDS: ASPIRIN EC 81 MG TABLET PO SCH (08:28)
[2019-10-18] MEDS: PANTOPRAZOLE 40 MG TABLET PO SCH (08:28)
[2019-10-18] MEDS: FUROSEMIDE 40 MG/4 ML VIAL IV SCH (08:28)
[2019-10-18] MEDS: INSULIN GLARGINE 100 UNIT/ML SUBCUT SCH (08:29)
[2019-10-18] MEDS: POTASSIUM CHLORIDE 8 MEQ CAPSULE PO SCH (08:38)
[2019-10-18 11:57] VITALS: BP 113/57
[2019-10-18] MEDS ORDERED: HEPARIN LOCK FLUSH 500 UNIT/5 ML SYRINGE IV PRN (13:06)
== END 2019-10-18 13:43 | disposition home or self-care (01) | DRG 292 ==
LOC: N.ED 04:05 → N.EDINP 07:20 → SUATTDRO 07:20 → N.EDINP 09:32 → N.4E 09:49
PROVIDERS: ADMIT Internal Medicine; ATTEND Hospitalist

== ENCOUNTER 2020-03-23 20:20 | Inpatient (IN) ==
[2020-03-23 20:54] LABS: Basophils % 0.6 % (0.0-0.8); Eosinophils # 0.1 10*3/uL (0.0-0.87); Eosinophils % 2.7 % (0.00-10.9); Hematocrit 43.1 VOL% (42.0-52.0); Hemoglobin 14.4 GM/DL (14.0-18.0); Immature Granulocytes % 0.9 %; Immature Granulocytes Absolute 0.05 #; Lymphocytes # 0.5 10*3/uL (1.4-4.0); Lymphocytes % 9.9 % (21.2-54.2); Mean Corpuscular HGB Conc 33.4 GM/DL (32-36); Mean Corpuscular Volume 85.3 FL (87-102); Mean Platelet Volume 10.2 FL (9.6-12.0); Monocytes % 13.9 % (1.7-12.7); Platelet Count 296 T/CUMM (130-400); Red Blood Count 5.05 MC/CUMM (3.8-5.5); Red Cell Distribution Width 14.1 % (9.3-17.3); White Blood Count 5.3 T/CUMM (4-12)
[2020-03-23 21:29] LABS: Albumin 3.4 G/DL (3.4-5.0); Bilirubin,Total 0.5 MG/DL (0.2-1.0); Calcium 10.4 MG/DL (8.5-10.1); Osmolality,Calculated 273.4 MOS/KG (273-304); Total Protein 7.7 G/DL (6.4-8.3)
[2020-03-23 22:09] LABS: Ferritin 308.5 ng/ml (26-388)
[2020-03-23] MEDS ORDERED: DEXAMETHASONE 4 MG/1 ML VIAL IV STA (22:32)
[2020-03-23] MEDS ORDERED: AZITHROMYCIN INJ 500 MG in SODIUM CHLORIDE 0.9% 250 ML IV STA (22:33)
[2020-03-24] MEDS ORDERED: GLUCAGON 1 MG VIAL IM PRN (01:13)
[2020-03-24] MEDS ORDERED: DEXTROSE 50% 25 GM/50 ML SYRINGE IV PRN (01:13)
[2020-03-24] MEDS ORDERED: DEXTROSE 50% 25 GM/50 ML VIAL IV PRN (01:13)
[2020-03-24] MEDS ORDERED: ONDANSETRON 4 MG/2 ML VIAL IV PRN (01:13)
[2020-03-24 06:44] LABS: Basophils % 0.4 % (0.0-0.8); Eosinophils % 0.2 % (0.00-10.9); Hematocrit 43.4 VOL% (42.0-52.0); Hemoglobin 14.4 GM/DL (14.0-18.0); Immature Granulocytes % 1.1 %; Immature Granulocytes Absolute 0.06 #; Lymphocytes # 0.5 10*3/uL (1.4-4.0); Lymphocytes % 8.7 % (21.2-54.2); Mean Corpuscular HGB Conc 33.2 GM/DL (32-36); Mean Corpuscular Volume 85.4 FL (87-102); Mean Platelet Volume 10.3 FL (9.6-12.0); Monocytes % 7.7 % (1.7-12.7); Neutrophils % 81.9 % (38.7-73.9); Platelet Count 289 T/CUMM (130-400); Red Blood Count 5.08 MC/CUMM (3.8-5.5); Red Cell Distribution Width 14.1 % (9.3-17.3); White Blood Count 5.5 T/CUMM (4-12)
[2020-03-24 07:10] LABS: Albumin 3.3 G/DL (3.4-5.0); Bilirubin,Total 1.2 MG/DL (0.2-1.0); Calcium 10.2 MG/DL (8.5-10.1); Osmolality,Calculated 276.4 MOS/KG (273-304); Total Protein 7.6 G/DL (6.4-8.3)
[2020-03-24 08:01] LABS: ABG Base Excess -1.7 MMOL/L (-2.5-2.5); ABG Oxygen Saturation 98.7 % (95-100); ABG PCO2 35.2 MM HG (35-48); ABG TCO2 19.1 MMOL/L (23-27)
[2020-03-24] MEDS: INSULIN REGULAR 100 UNIT/ML SUBCUT SCH ×4 (09:11→21:55)
[2020-03-24] MEDS: ALBUTEROL INHALER 18 GM INH SCH ×4 (09:11→19:50)
[2020-03-24] MEDS: SOTALOL 80 MG TABLET PO SCH ×2 (09:12→20:49)
[2020-03-24] MEDS: DEXAMETHASONE 4 MG/1 ML VIAL IV SCH (09:12)
[2020-03-24] MEDS: APIXABAN 2.5 MG TABLET PO SCH ×2 (09:13→20:49)
[2020-03-24] MEDS: PANTOPRAZOLE 40 MG TABLET PO SCH (09:13)
[2020-03-24] MEDS: ASPIRIN EC 81 MG TABLET PO SCH (09:22)
[2020-03-24] MEDS ORDERED: MELATONIN 3 MG TABLET PO PRN (23:39)
[2020-03-24] MEDS ORDERED: guaiFENesin 200 MG/10 ML UDCUP PO PRN (23:43)
[2020-03-25] MEDS: ALBUTEROL INHALER 18 GM INH SCH ×2 (01:41→08:45)
[2020-03-25 03:59] LABS: ABG Base Excess -0.1 MMOL/L (-2.5-2.5); ABG HCO3 24.3 MMOL/L (20-26); ABG Oxygen Saturation 97.9 % (95-100); ABG PCO2 40.3 MM HG (35-48); ABG PH 7.395 (7.35-7.45); ABG TCO2 21.3 MMOL/L (23-27)
[2020-03-25 07:18] LABS: Basophils % 0.2 % (0.0-0.8); Eosinophils % 0.1 % (0.00-10.9); Hematocrit 42.5 VOL% (42.0-52.0); Hemoglobin 14.2 GM/DL (14.0-18.0); Immature Granulocytes % 0.8 %; Immature Granulocytes Absolute 0.07 #; Lymphocytes # 1.1 10*3/uL (1.4-4.0); Mean Corpuscular HGB Conc 33.4 GM/DL (32-36); Mean Corpuscular Volume 86.6 FL (87-102); Mean Platelet Volume 10.2 FL (9.6-12.0); Monocytes % 15.5 % (1.7-12.7); Neutrophils % 71.4 % (38.7-73.9); Platelet Count 291 T/CUMM (130-400); Red Blood Count 4.91 MC/CUMM (3.8-5.5); Red Cell Distribution Width 14.3 % (9.3-17.3); White Blood Count 8.8 T/CUMM (4-12)
[2020-03-25 08:19] LABS: Sedimentation Rate-Westergren 29 MM/HR (0-20)
[2020-03-25] MEDS: ASPIRIN EC 81 MG TABLET PO SCH (08:45)
[2020-03-25] MEDS: INSULIN GLARGINE 100 UNIT/ML SUBCUT SCH ×2 (08:45→09:16)
[2020-03-25] MEDS: PANTOPRAZOLE 40 MG TABLET PO SCH (08:45)
[2020-03-25] MEDS: INSULIN REGULAR 100 UNIT/ML SUBCUT SCH (08:45)
[2020-03-25] MEDS: APIXABAN 2.5 MG TABLET PO SCH (08:45)
[2020-03-25] MEDS: SOTALOL 80 MG TABLET PO SCH (08:45)
[2020-03-25] MEDS: DEXAMETHASONE 4 MG/1 ML VIAL IV SCH (08:45)
[2020-03-25 11:26] VITALS: BP 110/61
[2020-03-25] MEDS ORDERED: AZITHROMYCIN INJ 500 MG in SODIUM CHLORIDE 0.9% 250 ML IV ONE (13:33)
== END 2020-03-25 15:30 | disposition home health service (06) | DRG 177 ==
LOC: N.ED 20:20 → N.EDINP 03-24 01:13 → SUATTDRO 03-24 01:13 → N.2E 03-24 02:32
PROVIDERS: ADMIT Hospitalist; ATTEND Hospitalist

== ENCOUNTER 2020-03-29 00:30 | Inpatient (IN) ==
[2020-03-29] MEDS ORDERED: SODIUM CHLORIDE 0.9% 1,000 ML IV STA (01:13)
[2020-03-29 01:27] LABS: Basophils % 0.2 % (0.0-0.8); Eosinophils % 0.1 % (0.00-10.9); Hematocrit 48.9 VOL% (42.0-52.0); Immature Granulocytes % 1.5 %; Immature Granulocytes Absolute 0.19 #; Lymphocytes # 0.6 10*3/uL (1.4-4.0); Lymphocytes % 4.8 % (21.2-54.2); Mean Corpuscular HGB Conc 33.3 GM/DL (32-36); Mean Corpuscular Volume 84.9 FL (87-102); Mean Platelet Volume 10.1 FL (9.6-12.0); Monocytes % 8.5 % (1.7-12.7); Neutrophils % 84.9 % (38.7-73.9); Platelet Count 259 T/CUMM (130-400); Red Cell Distribution Width 14.7 % (9.3-17.3)
[2020-03-29 01:28] LABS: Hemoglobin 16.3 GM/DL (14.0-18.0); Red Blood Count 5.76 MC/CUMM (3.8-5.5); White Blood Count 12.4 T/CUMM (4-12)
[2020-03-29 01:53] LABS: Albumin 3.4 G/DL (3.4-5.0); Bilirubin,Total 0.6 MG/DL (0.2-1.0); Calcium 10.3 MG/DL (8.5-10.1); Ferritin 465.2 ng/ml (26-388); Osmolality,Calculated 271.2 MOS/KG (273-304); Total Protein 8.1 G/DL (6.4-8.3)
[2020-03-29 02:03] LABS: Lymphocytes 5 % (20-55); Metamyelocytes 1 %; Segmented Neutrophils 88 % (50-85); Total Cells Counted 100
[2020-03-29 02:04] LABS: Platelet Estimate Normal
[2020-03-29] MEDS ORDERED: GLUCAGON 1 MG VIAL IM PRN ×2 (02:46→12:07)
[2020-03-29] MEDS ORDERED: DEXTROSE 50% 25 GM/50 ML VIAL IV PRN ×2 (02:46→12:07)
[2020-03-29] MEDS ORDERED: MORPHINE 4 MG/1 ML VIAL IV PRN (02:46)
[2020-03-29] MEDS ORDERED: diphenhydrAMINE CAP 25 MG CAPSULE PO PRN (02:46)
[2020-03-29] MEDS ORDERED: ONDANSETRON 4 MG/2 ML VIAL IV PRN (02:46)
[2020-03-29] MEDS ORDERED: hydrALAZINE 20 MG/1 ML VIAL IV PRN (02:46)
[2020-03-29] MEDS ORDERED: guaiFENesin/DM ER 600-30 MG TABLET PO PRN (02:46)
[2020-03-29] MEDS ORDERED: NICOTINE 21 MG/24 HR PATCH TRANSDERM PRN (02:46)
[2020-03-29] MEDS ORDERED: ACETAMINOPHEN 325 MG TABLET PO PRN (02:46)
[2020-03-29] MEDS ORDERED: DEXAMETHASONE 4 MG/1 ML VIAL IV STA (03:02)
[2020-03-29] MEDS: SODIUM CHLORIDE 0.9% 1,000 ML IV SCH ×3 (04:04→20:55)
[2020-03-29] MEDS ORDERED: CHOLESTYRAMINE/ASPARTAME 4 GM PACK PO PRN (07:05)
[2020-03-29] MEDS ORDERED: BENZONATATE 100 MG CAPSULE PO PRN (07:05)
[2020-03-29] MEDS ORDERED: POLYETHYLENE GLYCOL POWDER 17 GM PACK PO PRN (07:05)
[2020-03-29] MEDS ORDERED: TEMAZEPAM 7.5 MG CAPSULE PO PRN (07:05)
[2020-03-29] MEDS: POTASSIUM CHLORIDE 8 MEQ CAPSULE PO SCH (09:02)
[2020-03-29] MEDS: SOTALOL 80 MG TABLET PO SCH ×2 (09:02→20:57)
[2020-03-29] MEDS: INSULIN REGULAR 100 UNIT/ML SUBCUT SCH ×4 (09:03→20:56)
[2020-03-29] MEDS: INSULIN GLARGINE 100 UNIT/ML SUBCUT SCH (09:03)
[2020-03-29] MEDS: LACTOBACILLUS RHAMNOSUS GG CAPSULE PO SCH ×2 (09:03→20:57)
[2020-03-29] MEDS: metFORMIN 500 MG TABLET PO SCH (09:03)
[2020-03-29] MEDS: LUBIPROSTONE 8 MCG CAPSULE PO SCH (09:04)
[2020-03-29] MEDS: APIXABAN 2.5 MG TABLET PO SCH ×2 (09:04→20:57)
[2020-03-29] MEDS: ASPIRIN EC 81 MG TABLET PO SCH (09:04)
[2020-03-29] MEDS: FUROSEMIDE 40 MG TABLET PO SCH (09:04)
[2020-03-29] MEDS: lisinopriL 2.5 MG TABLET PO SCH (09:04)
[2020-03-29] MEDS: ROSUVASTATIN 20 MG TABLET PO SCH (09:04)
[2020-03-29] MEDS: AZITHROMYCIN 250 MG TABLET PO SCH (09:05)
[2020-03-29 09:54] LABS: Albumin 2.9 G/DL (3.4-5.0); Bilirubin,Total 0.8 MG/DL (0.2-1.0); Calcium 9.8 MG/DL (8.5-10.1); Osmolality,Calculated 280.8 MOS/KG (273-304); Total Protein 7.3 G/DL (6.4-8.3)
[2020-03-29] MEDS ORDERED: ALPRAZolam 0.25 MG TABLET PO ONE (12:53)
[2020-03-29 15:18] LABS: Bilirubin,Total 0.6 MG/DL (0.2-1.0); Calcium 9.8 MG/DL (8.5-10.1); Osmolality,Calculated 275.8 MOS/KG (273-304); Total Protein 7.6 G/DL (6.4-8.3)
[2020-03-29] MEDS: ALPRAZolam 0.25 MG TABLET PO PRN (20:57)
[2020-03-30] MEDS: INSULIN REGULAR 100 UNIT/ML SUBCUT SCH ×2 (08:14→12:16)
[2020-03-30] MEDS: ALPRAZolam 0.25 MG TABLET PO PRN (08:48)
[2020-03-30] MEDS: LUBIPROSTONE 8 MCG CAPSULE PO SCH (08:48)
[2020-03-30] MEDS: LACTOBACILLUS RHAMNOSUS GG CAPSULE PO SCH (08:48)
[2020-03-30] MEDS: FUROSEMIDE 40 MG TABLET PO SCH (08:48)
[2020-03-30] MEDS: metFORMIN 500 MG TABLET PO SCH (08:48)
[2020-03-30] MEDS: SOTALOL 80 MG TABLET PO SCH (08:48)
[2020-03-30] MEDS: AZITHROMYCIN 250 MG TABLET PO SCH (08:48)
[2020-03-30] MEDS: lisinopriL 2.5 MG TABLET PO SCH (08:49)
[2020-03-30] MEDS: ROSUVASTATIN 20 MG TABLET PO SCH (08:49)
[2020-03-30] MEDS: POTASSIUM CHLORIDE 8 MEQ CAPSULE PO SCH (08:49)
[2020-03-30] MEDS: ASPIRIN EC 81 MG TABLET PO SCH (08:49)
[2020-03-30] MEDS: APIXABAN 2.5 MG TABLET PO SCH (08:50)
[2020-03-30] MEDS: INSULIN GLARGINE 100 UNIT/ML SUBCUT SCH (08:50)
[2020-03-30] MEDS ORDERED: PRASUGREL 10 MG TABLET PO SCH (09:00)
[2020-03-30 10:14] LABS: Basophils % 0.2 % (0.0-0.8); Eosinophils % 0.2 % (0.00-10.9); Hematocrit 43.3 VOL% (42.0-52.0); Hemoglobin 14.2 GM/DL (14.0-18.0); Immature Granulocytes Absolute 0.09 #; Lymphocytes # 0.6 10*3/uL (1.4-4.0); Lymphocytes % 6.6 % (21.2-54.2); Mean Corpuscular HGB Conc 32.8 GM/DL (32-36); Mean Corpuscular Volume 85.7 FL (87-102); Mean Platelet Volume 9.8 FL (9.6-12.0); Monocytes % 8.7 % (1.7-12.7); Neutrophils % 83.3 % (38.7-73.9); Platelet Count 194 T/CUMM (130-400); Red Blood Count 5.05 MC/CUMM (3.8-5.5); Red Cell Distribution Width 14.6 % (9.3-17.3); White Blood Count 8.8 T/CUMM (4-12)
[2020-03-30 10:29] LABS: Calcium 9.7 MG/DL (8.5-10.1); Osmolality,Calculated 268.7 MOS/KG (273-304)
[2020-03-30 11:58] VITALS: BP 108/73
== END 2020-03-30 13:50 | disposition home health service (06) | DRG 177 ==
LOC: N.ED 00:30 → N.EDINP 02:46 → N.2E 04:08
PROVIDERS: ADMIT Hospitalist; ATTEND Hospitalist